=== PATIENT | female | born 1965 ===

== ENCOUNTER 2017-08-15 10:47 | Emergency (ER) | payer MEDICAID ==
[2017-08-15 10:47] VITALS: BMI 25.7
[2017-08-15 10:57] VITALS: RESP 20; TEMP 98.1
[2017-08-15] MEDS ORDERED: HYDROmorphone 1 mg/ml ISec IM STA (11:39)
[2017-08-15] MEDS ORDERED: HYDROmorphone 1 mg/ml ISec ONE (11:45)
--- NOTE | 2017-08-15 12:10 | C.PDOC ---
History Of Present Illness 52 yo female w/PMHx of schizo, chronic lower back pain, s/p L-spine surgery 5 yrs ago, on PM, BIBA accompanied by family member for evaluation of lower back pain exacerbation since today AM " after picked up heavy laundry". Pt sts, pain is localized, lower back, non-radiating, " usual, chronic". Otherwise, denies fever, chills, fall, denies abd. pain, V/D, saddle anesthesia, incontinence, UTI sx. At the ,in of evaluation, pt appears in pain, agitated. Family member admits, pt takes percocet for pain. Time Seen by Provider: 08/15/17 11:23 Chief Complaint (Nursing): Back Pain History Per: Patient History/Exam Limitations: no limitations Onset/Duration Of Symptoms: Hrs Current Symptoms Are (Timing): Still Present Severity: Moderate Previous Symptoms: Back Pain Past Medical History Reviewed: Historical Data, Nursing Documentation, Vital Signs Vital Signs: Last Vital Signs Temp 98.1 F 08/15/17 10:54 Pulse 58 L 08/15/17 13:11 Resp 20 08/15/17 13:11 BP 122/78 08/15/17 13:11 Pulse Ox 96 08/15/17 13:11 - Medical History PMH: Anxiety, Arthritis, Back Problems, Bipolar Disorder, Depression, Chronic Pain (back) Denies: HTN, Chronic Kidney Disease, Seizures, Sexually Transmitted Disease Surgical History: Back Surgery - [facility] Procedures ANESTH INJECT-SPIN CANAL (12/07/14) INJECT STEROID (12/07/14) INJECT/INFUSE NEC (12/04/14) INJECTION INTO JOINT (12/07/14) INSERTION OF INFUSION DEV INTO R FEMOR VEIN, PERC APPROACH (05/04/16) PHYSICAL THERAPY NEC (11/23/14) PSYCHIA INTERV/EVAL NEC (05/07/13) SPINAL CANAL INJECT NEC (12/07/14) Family History: States: No Known Family Hx - Social History Hx Tobacco Use: Yes Hx Alcohol Use: No Hx Substance Use: No - Immunization History Hx Tetanus Toxoid Vaccination: No Hx Influenza Vaccination: Yes (2016) Hx Pneumococcal Vaccination: No Review Of Systems Constitutional: Negative for: Fever, Chills Respiratory: Negative for: Shortness of Breath Gastrointestinal: Negative for: Vomiting Genitourinary: Negative for: Incontinence Musculoskeletal: Positive for: Back Pain Neurological: Negative for: Weakness, Numbness, Headache, Dizziness Physical Exam - Physical Exam Appears: Well, Non-toxic, No Acute Distress Skin: Normal Color, Warm, Dry, No Rash Head: Normacephalic Eye(s): bilateral: PERRL Nose: No Flaring, No Discharge Oral Mucosa: Moist Throat: No Drooling Neck: Trachea Midline, No Midline Cervical Tenderness, No Paracervical Tenderness, No Step Off Deformity, Supple Cardiovascular: Rhythm Regular Respiratory: No Decreased Breath Sounds, No Accessory Muscle Use, No Stridor, No Wheezing Gastrointestinal/Abdominal: Soft, No Tenderness, No Distention, No Guarding Back: No CVA Tenderness, No Vertebral Tenderness, Paraspinal Tenderness ( diffuse lumbar paraspinal tenderness. No palpable deformity, no edmea, no erythema.), Straight Leg Raising (B/L legs at 60 degrees.) Extremity: Normal ROM, No Deformity, No Swelling Neurological/Psych: Oriented x3, Normal Speech, Normal Motor, Normal Sensation, Normal Reflexes ED Course And Treatment O2 Sat by Pulse Oximetry: 100 (RA) Pulse Ox Interpretation: Normal Progress Note: On re-evaluation, pt is afebrile, hemodynamicaly stable. Non- toxic. Pt was able to ambulate to bathroom with stable gait. neck: Supple, (- ) meningeal sign. Lungs: CTA B/L, BS equal B/L. Abd: benign, (-) guarding, (- ) rebound. Back: (-) CVA tenderness. neurologicaly intact. Pt has clinical findings c/w chronic lower back pain with acute exacerbation. Pt advised. ref. to f/u with PMD, PM in 2-3 days for re-eval. return to ED if any worsening or new changes. Disposition Counseled Patient/Family Regarding: Studies Performed, Diagnosis, Need For Followup, Rx Given - Disposition Referrals: Nabila Yan MD [Medical Doctor] - Disposition: HOME/ ROUTINE Disposition Time: 12:59 Condition: STABLE Additional Instructions: Light duty to lower back Take pain medication as prescribed Follow up with PMD, Pain management in 2-3 days for re-evaluation. Return to ED if nay worsening or new changes. Prescriptions: Methocarbamol [Robaxin] 500 mg PO TID #14 tab traMADol [Ultram] 50 mg PO TID #7 tab Instructions: Low Back Pain (DC) Forms: [employer] (Bruneian) Print Language: ANGOLAN - Clinical Impression Clinical Impression: Low back pain - Scribe Statement The provider has reviewed the documentation as recorded by the Scribe (Karla Araiza) All medical record entries made by the Scribe were at my direction and personally dictated by me. I have reviewed the chart and agree that the record accurately reflects my personal performance of the history, physical exam, medical decision making, and the department course for this patient. I have also personally directed, reviewed, and agree with the discharge instructions and disposition.
[2017-08-15 12:32] LABS: SQUAMOUS EPITHIAL 1 /hpf (0-5); URINE BACTERIA RARE (<OCC); URINE BILIRUBIN NEGATIVE (NEGATIVE); URINE BLOOD 2+ (NEGATIVE); URINE CLARITY Clear (Clear); URINE COLOR Colorless (YELLOW); URINE GLUCOSE (UA) NORMAL (Normal); URINE LEUKOCYTE ESTERASE NEG Leu/uL (Negative); URINE PROTEIN NEGATIVE (NEGATIVE); URINE UROBILINOGEN NORMAL mg/dL (0.2-1.0)
[2017-08-15 13:11] VITALS: BP 122/78; PULSE 58
[2017-08-16 16:32] VITALS: O2SAT 100
== END 2017-08-15 13:20 | disposition home or self-care (01) ==
LOC: C.ER 10:47
DX: M54.5 Low back pain (principal); Z72.0 Tobacco use
CPT/HCPCS: 81001; 96372; 99283; J1170; J2930